=== PATIENT | female | born 2000 | race Two or more races ===

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

== ENCOUNTER 2021-02-20 06:35 | Emergency (ER) | payer OTHER ==
[2021-02-20 07:11] VITALS: BMI 26.9
[2021-02-20] MEDS ORDERED: WATER IVPB ONE (08:03)
[2021-02-20] MEDS ORDERED: DOXYCYCLINE IVPB ONE (08:03)
[2021-02-20] MEDS ORDERED: DEXTROSE 5% IVPB ONE (08:03)
[2021-02-20] MEDS ORDERED: DALBAVANCIN HCL 1,500 MG in DEXTROSE 5%-WATER - 500 ML IVPB ONE (08:41)
[2021-02-20 08:49] LABS: BASO % 0.5 % (0-2.0); EOS % 0.6 % (0-4.5); HEMATOCRIT 40.6 % (32.4-45.2); HEMOGLOBIN 13.7 GM/dL (10.7-15.3); LYMPH % 10.7 % (8-40); MCH 28.3 pg (25.7-33.7); MCHC 33.7 g/dl (32.0-36.0); MEAN CELL VOLUME 84.1 fl (80-96); MEAN PLT VOLUME 9.3 fl (7.5-11.1); MONO % 4.7 % (3.8-10.2); NEUT % 83.5 % (42.8-82.8); PLATELET COUNT 253 10^3/uL (134-434); RBC 4.82 M/mm3 (3.60-5.2); RDW 13.3 % (11.6-15.6); WHITE BLOOD COUNT 15.4 K/mm3 (4.0-10.0)
[2021-02-20 09:05] LABS: ALBUMIN 4.6 g/dl (3.4-5.0); BLOOD UREA NITROGEN 20.2 mg/dL (7-18); CALCIUM 8.8 mg/dL (8.5-10.1)
[2021-02-20 09:08] LABS: CREATININE 0.9 mg/dL (0.55-1.3)
[2021-02-20 09:10] LABS: BILIRUBIN,TOTAL 0.4 mg/dL (0.2-1); TOT PROT 8.5 g/dl (6.4-8.2)
[2021-02-20 11:33] VITALS: BP 115/64; PULSE 71; TEMP 98.3
== END 2021-02-20 11:57 | disposition home or self-care (01) ==
LOC: JER 06:35
PROC: 0H9FXZZ Drainage of Right Hand Skin, External Approach (ICD-10-PCS; principal; 2021-02-20)
PROC: 3E03329 Introduction of Other Anti-infective into Peripheral Vein, Percutaneous Approach (ICD-10-PCS; 2021-02-20)
DX: L03.011 Cellulitis of right finger (principal)
CPT/HCPCS: 36415; 73130-TC-RT-FY; 80053; 85025; 87040; 87070; 87186; 87205; 99284-25; C9803; J0875; U0003; U0005

== ENCOUNTER 2021-02-21 12:01 | Emergency (ER) | payer OTHER ==
[2021-02-21 12:19] VITALS: BP 108/78; PULSE 68; TEMP 97.5; BMI 26.4
[2021-02-21] MEDS ORDERED: BACITRACIN 0.9 GM PACKET ONE (13:50)
== END 2021-02-21 14:09 | disposition home or self-care (01) ==
LOC: JERFT 12:01
DX: Z48.00 Encounter for change or removal of nonsurgical wound dressing (principal)
CPT/HCPCS: 99281-25

== ENCOUNTER 2022-12-05 14:01 | Emergency (ER) | payer OTHER ==
[2022-12-05 14:10] VITALS: BP 105/59; PULSE 67; RESP 18; TEMP 98.1; BMI 25.2
== END 2022-12-05 16:45 | disposition home or self-care (01) ==
LOC: JER 14:01 → JERFT 14:01
DX: S60.221A Contusion of right hand, initial encounter (principal); M79.641 Pain in right hand; W22.01XA Walked into wall, initial encounter
CPT/HCPCS: 73130-TC-RT-FY; 99283-25

== ENCOUNTER 2024-08-20 13:39 | Emergency (ER) | payer SELFPAY ==
[2024-08-20 13:54] VITALS: BP 98/68; PULSE 75; RESP 18; TEMP 98.1; BMI 22.3
[2024-08-20] MEDS ORDERED: ONDANSETRON 4 MG/2 ML VIAL ONE (15:16)
[2024-08-20] MEDS ORDERED: morphine SULFATE 4 MG/ML VIAL ONE (15:16)
[2024-08-20] MEDS: SODIUM CHLORIDE 1,000 ML IV STA (15:31)
[2024-08-20] MEDS: morphine CARPU-JECT 4 MG/1 ML DISP.SYRIN IVPUSH ONE (15:31)
[2024-08-20] MEDS: ONDANSETRON 4 MG/2 ML VIAL IVPUSH ONE (15:32)
[2024-08-20 15:57] LABS: BASO % 0.6 % (0-2.0); EOS % 1.6 % (0-4.5); HEMATOCRIT 39.5 % (32.4-45.2); LYMPH % 40.9 % (8-40); MCH 27.7 pg (25.7-33.7); MEAN CELL VOLUME 84.1 fl (80-96); MEAN PLT VOLUME 8.7 fl (7.5-11.1); MONO % 6.5 % (3.8-10.2); NEUT % 50.4 % (42.8-82.8); PLATELET COUNT 223 10^3/uL (134-434); RDW 12.5 % (11.6-15.6); WHITE BLOOD COUNT 6.1 K/mm3 (4.0-10.0)
[2024-08-20 16:17] LABS: URINE APPEARANCE CLEAR; URINE BILIRUBIN NEGATIVE (NEGATIVE); URINE COLOR YELLOW; URINE GLUCOSE (UA) NEGATIVE (NEGATIVE); URINE KETONE NEGATIVE (NEGATIVE); URINE LEUK ESTERASE NEGATIVE (NEGATIVE); URINE NITRITE NEGATIVE (NEGATIVE); URINE PROTEIN NEGATIVE (NEGATIVE); URINE UROBILINOGEN 0.2 mg/dL (0.2-1.0)
[2024-08-20 16:20] LABS: HCG,QUALITATIVE URINE Negative
[2024-08-20 16:34] LABS: POTASSIUM 3.9 mmol/L (3.5-5.1)
[2024-08-20 16:36] LABS: ALBUMIN 4.4 g/dl (3.4-5.0); CALCIUM 9.1 mg/dL (8.5-10.1)
[2024-08-20 16:40] LABS: CREATININE 0.7 mg/dL (0.55-1.3)
[2024-08-20 16:41] LABS: BILIRUBIN,TOTAL 0.6 mg/dL (0.2-1); TOT PROT 7.6 g/dl (6.4-8.2)
[2024-08-20] MEDS ORDERED: IBUPROFEN 600 MG TABLET (FP) PO ONE (19:50)
[2024-08-20] MEDS: IBUPROFEN 600 MG TABLET (FP) PO ONE (19:59)
== END 2024-08-20 20:04 | disposition home or self-care (01) ==
LOC: JER 13:39
PROC: 3E033NZ Introduction of Analgesics, Hypnotics, Sedatives into Peripheral Vein, Percutaneous Approach (ICD-10-PCS; principal; 2024-08-20)
PROC: 3E033GC Introduction of Other Therapeutic Substance into Peripheral Vein, Percutaneous Approach (ICD-10-PCS; 2024-08-20)
PROC: 3E0337Z Introduction of Electrolytic and Water Balance Substance into Peripheral Vein, Percutaneous Approach (ICD-10-PCS; 2024-08-20)
DX: K52.9 Noninfective gastroenteritis and colitis, unspecified (principal); R11.2 Nausea with vomiting, unspecified; R10.31 Right lower quadrant pain; R63.0 Anorexia
CPT/HCPCS: 36415; 74177-TC; 76830-TC; 80053; 81003; 83690; 84703; 85025; 87086; 87491; 87591; 99285-25; Q9967